=== PATIENT | female | born 1970 | race Caucasian/White ===

== ENCOUNTER 2024-11-03 21:36 | Inpatient (IN) | payer SELFPAY ==
[2024-11-03 21:49] VITALS: BP 136/91; PULSE 70; RESP 20; TEMP 36.8; O2SAT 91; BMI 26.4
--- NOTE | 2024-11-03 21:49 | ECG_ITS ---
APPROVED REPORT Exam: Resting ECG HR:65 bpm ECG Measurements Heart Rate 65 AXES MI 146 P 74 QRSd 94 QRS 81 QT 391 T 66 QTc 403 Conclusion SINUS RHYTHM NORMAL ECG UNCONFIRMED REPORT Electronically signed by : JOLEEN RIVAS, 11/04/2024 06:50:35
--- NOTE | 2024-11-03 21:55 | XR_ITS ---
PROCEDURE INFORMATION: Exam: XR Chest Exam date and time: 11/03/2024 10:00 PM Age: 54 years old Clinical indication: Shortness of breath; Additional info: Chest pain TECHNIQUE: Imaging protocol: Radiologic exam of the chest. Views: 1 view. COMPARISON: No relevant prior studies available. FINDINGS: Lungs: Increased opacity in the medial right lower lung may reflect developing infection. Pleural spaces: No large effusion or pneumothorax. Heart/Mediastinum: No evidence of mediastinal widening or cardiac silhouette enlargement; the mediastinum and heart appear within normal limits for contour and size. Vasculature: There are calcifications of the aortic arch. Bones/joints: No evidence of acute osseous abnormalities within the visualized portions of the thoracic spine and ribs. Osseous structures appear appropriate for patient age. IMPRESSION: Increased opacity in the medial right lower lung may reflect developing infection.
[2024-11-03 22:00] VITALS: BP 114/85; RESP 18
[2024-11-03] MEDS: ASPIRIN 81MG CHEWABLE TABLET 324 MG PO (22:00)
[2024-11-03 22:06] LABS: Coronavirus 19, PCR Not Detected (NotDetected); Influenza A, PCR Not Detected (NotDetected); Influenza B, PCR Not Detected (NotDetected)
[2024-11-03 22:08] LABS: Basophils # 0.1 K/mm3 (0-0.2); Basophils % 0.6 % (0.1-2.0); Eosinophils # 0.2 K/mm3 (0.0-0.4); Eosinophils % 2.4 % (0.1-12.0); Hematocrit 41.4 % (37.0-47.0); Hemoglobin 13.4 g/dL (12.2-16.2); Lymphocytes # 3.1 K/mm3 (0.7-4.5); Lymphocytes % 33.7 % (10-50); Mean Corpuscular HGB Conc 32.4 g/dL (31.8-35.4); Mean Corpuscular Hemoglobin 28.8 pg (27.0-31.2); Mean Corpuscular Volume 88.8 fl (81-99); Mean Platelet Volume 10.9 fl (7.4-10.4); Monocytes % 11.4 % (1.7-9.3); Neutrophils # 4.7 K/mm3 (1.8-7.8); Neutrophils % 51.7 % (37.0-80.0); Platelet Count 220 K/mm3 (142-424); Red Blood Count 4.66 M/mm3 (4.20-5.40); Red Cell Distribution Width 13.2 % (11.5-17.5); White Blood Count 9.1 K/mm3 (4.8-10.8)
[2024-11-03 22:15] LABS: Alanine Aminotransferase 53 U/L (12-78); Albumin Level 4.1 g/dl (3.5-5.0); Albumin/Globulin Ratio 1.4 (1.1-1.8); Alkaline Phosphatase 66 U/L (38-126); Anion Gap 12.9 mEq/L (5-15); Aspartate Amino Transferase 44 U/L (14-36); Bilirubin,Total 0.2 mg/dl (0.2-1.3); Blood Urea Nitrogen 9 mg/dl (7-17); Calcium 8.8 mg/dl (8.4-10.2); Carbon Dioxide 28 mmol/L (22.0-30.0); Chloride 103 mmol/L (98-107); Creatinine Clearance Estimated 102 mL/min (50-200); Estimated Glomerular Filt Rate 104 ml/min (>60); GFR (African American) 126 ML/MIN (>60); Globulin 2.9 g/dL (1.3-3.2); Glucose 87 mg/dl (74-100); Potassium 3.9 mmoL/L (3.5-5.1); Sodium 140 mmol/L (136-145)
--- NOTE | 2024-11-03 22:29 | PC.NURSE ---
Pt resting quietly in bed Awaiting results and disposition
[2024-11-03 22:30] VITALS: BP 129/84; PULSE 71; RESP 25; O2SAT 92
[2024-11-03 22:31] LABS: Troponin I < 0.01 ng/ml (0.00-0.034)
[2024-11-03] MEDS: DOXYCYCLINE HYCL 100 MG TABLET PO (22:51)
[2024-11-03] MEDS: METHYLPREDNISOLONE SOD SUCC 125MG VIAL 125 MG IV (22:51)
[2024-11-03] MEDS: IPRATROPIUM/ALBUTEROL 3 ML NEB 6 ML IH (22:55)
[2024-11-03 23:00] VITALS: BP 121/79
--- NOTE | 2024-11-03 23:23 | ED_ITS ---
Discharge Plan Disposition Patient Disposition: Admitted Condition: Good Clinical Impressions Clinical Impression: Acute exacerbation of chronic obstructive pulmonary disease, Pneumonia, Acute hypoxemic respiratory failure Discharge ED Provider: Marilu Garza General Chief Complaint: Shortness of Breath/Dyspnea Stated Complaint: exp flu-diff breathing, cough Time Seen by Provider: 11/03/24 22:05 Mode of Arrival: Ambulatory Source of Information: Patient Limitations: No Limitations Description of Symptoms (Recalled from ER Triage Doc. by RN): Patient reports cough, shortness of breath and fever x 1 week. Reports increased shortness with exertion. History of Present Illness HPI narrative: This patient is a 54-year-old female with a history of tobacco dependence presenting to the emergency department for evaluation with concern for cough and shortness of breath x 1 week. Patient notes that she was sick last week with a febrile illness, she assumed was either COVID or the flu. She notes that this week, she has had worsening cough and dyspnea on exertion to the point where she feels that she is going to pass out. She notes she has coughing spells where she feels like she is going to pass out as well. No other concerns noted at this time. Related Data Home Medications ?Medication ?Instructions ?Recorded ?Confirmed guaifenesin 600 mg tablet, 1 mg PO BID 11/03/24 11/03/24 extended release 12 hr (Mucinex) Allergies Allergy/AdvReac Type Severity Reaction Status Date / Time From Penicillin G Sodium Allergy Unknown Uncoded 09/15/17 15:03 Nitrofurantoin Allergy Unknown Uncoded 09/15/17 15:03 Penicillin Allergy Unknown Uncoded 09/15/17 15:03 [facility] Disclaimer: The information contained in this section may have been updated after the patient was seen, as this information can be updated by other users. Medical History No significant past medical history No significant past medical history Social History Smoking Status: Current every day smoker alcohol intake: never current occupational status: employed Travel in the last 8 weeks: None ROS Obtained: Yes All systems reviewed & no additional complaints except as documented Physical Exam General General appearance: alert and in no apparent distress Head Head exam: atraumatic and normocephalic Eye Eye exam: Present normal appearance, PERRL and EOMI ENT ENT exam: Present normal exam, normal oropharynx, mucous membranes moist and normal external ear exam Neck Neck exam: Present normal inspection, full ROM and trachea midline; Absent tenderness Chest Chest inspection: Present normal inspection and symmetric chest wall rise; Absent tenderness Respiratory Respiratory exam: Present wheezes, accessory muscle use, prolonged expiratory phase and other (Wheezing and rhonchi, right greater than left); Absent stridor Cardiovascular Cardiovascular exam: Present regular rate and normal rhythm Abdominal Exam Abdominal exam: Present soft; Absent distention, tenderness or guarding Extremities Exam Extremities exam: Present normal inspection, full ROM and normal capillary refill; Absent tenderness or edema Back Exam Back exam: Present normal inspection and full ROM; Absent tenderness Neurological Exam Neurological exam: Present alert, oriented X3, CN II-XII intact and normal gait; Absent motor sensory deficit Psychiatric Psychiatric exam: Present normal affect and normal mood Skin Skin exam: Present warm and dry HEART Score HEART Score HEART Score assessment performed?: Yes History (anamnesis): Slightly suspicious ECG: Normal Age: 45-65 years Risk factors: 1-2 risk factors Troponin: </= normal limit HEART Score: 2 Critical Care Critical Care Time Critical Care Time: No Medical Decision Making Jesús Inquiry Pt receiving controlled substance: No Vital Signs Vital Signs: 11/03/24 21:49 11/03/24 22:00 11/03/24 22:30 Temperature 98.3 F Temperature Source Oral Pulse Rate 71 Pulse Rate [Right Brachial] 70 Respiratory Rate 20 18 25 H Blood Pressure 114/85 129/84 Blood Pressure [Right Arm] 136/91 H Blood Pressure Mean Blood Pressure Mean [Right Arm] 106 Blood Pressure Source Blood Pressure Source [Right Arm] Automatic Cuff Blood Pressure Position Blood Pressure Position [Right Arm] Sitting 02 Sat by Pulse Oximetry 91 L 92 L Oxygen Delivery Method Room Air Room Air Room Air Oxygen Flow Rate (LPM) 11/03/24 23:00 11/03/24 23:30 11/04/24 00:06 Temperature Temperature Source Pulse Rate 72 Pulse Rate [Right Brachial] Respiratory Rate 21 Blood Pressure 121/79 133/82 117/78 Blood Pressure [Right Arm] Blood Pressure Mean 102 99 Blood Pressure Mean [Right Arm] Blood Pressure Source Automatic Cuff Blood Pressure Source [Right Arm] Blood Pressure Position Blood Pressure Position [Right Arm] 02 Sat by Pulse Oximetry 91 L Oxygen Delivery Method Room Air Oxygen Flow Rate (LPM) 11/04/24 00:15 11/04/24 00:30 11/04/24 00:59 Temperature 98.0 F Temperature Source Oral Pulse Rate 79 77 80 Pulse Rate [Right Brachial] Respiratory Rate 21 18 17 Blood Pressure 126/74 126/74 Blood Pressure [Right Arm] Blood Pressure Mean Blood Pressure Mean [Right Arm] Blood Pressure Source Automatic Cuff Automatic Cuff Blood Pressure Source [Right Arm] Blood Pressure Position Sitting Blood Pressure Position [Right Arm] 02 Sat by Pulse Oximetry 90 L 90 L Oxygen Delivery Method Room Air Nasal Cannula Nasal Cannula Oxygen Flow Rate (LPM) 3 3 Lab Data Labs: Lab Results 11/03/24 21:40: SARS-CoV-2 (PCR) Not detected, Influenza A Untype (PCR) Not detected, Influenza Type B (PCR) Not detected 11/03/24 21:55: WBC 9.1, RBC 4.66, Hgb 13.4, Hct 41.4, MCV 88.8, MCH 28.8, MCHC 32.4, RDW 13.2, Plt Count 220, MPV 10.9 H, Neut % (Auto) 51.7, Lymph % (Auto) 33.7, [place] % (Auto) 11.4 H, Eos % (Auto) 2.4, Baso % (Auto) 0.6, Neut # (Auto) 4.7, Lymph # (Auto) 3.1, [place] # (Auto) 1.0, Eos # (Auto) 0.2, Baso # (Auto) 0.1, Sodium 140, Potassium 3.9, Chloride 103, Carbon Dioxide 28, Anion Gap 12.9, BUN 9, Creatinine 0.60, Estimated Creat Clear 102, Estimated GFR 104, Est GFR ( Amer) 126, Glucose 87, Calcium 8.8, Total Bilirubin 0.2, AST 44 H, ALT 53, Alkaline Phosphatase 66, Troponin I < 0.01, Total Protein 7.0, Albumin 4.1, Globulin 2.9, Albumin/Globulin Ratio 1.4 11/03/24 21:55 11/03/24 21:55 Response Orders (Tests/Meds): ED MEDICATIONS Generic Name Dose Route Start Last Admin Trade Name Freq PRN Reason Stop Dose Admin Acetaminophen 650 mg 11/04/24 00:30 Acetaminophen 325mg Tab PO 12/04/24 00:29 Q4HP PRN Fever or Mild Pain (1-3) Enoxaparin Sodium 40 mg 11/04/24 09:00 Enoxaparin 40mg/0.4ml Syringe SUBCUT 12/04/24 08:59 DAILY HUGH Nicotine 21 mg 11/04/24 00:30 Nicotine 21mg/24hr Patch TD 12/04/24 00:29 DAILYP PRN Nicotine Cravings Nitroglycerin 0.4 mg 11/03/24 21:55 Nitroglycerin 0.4mg Sl Tablet SL 11/04/24 21:55 Q5MINP PRN Chest Pain Discontinued Medications Generic Name Dose Route Start Last Admin Trade Name Freq PRN Reason Stop Dose Admin Albuterol/Ipratropium 6 ml 11/03/24 22:38 11/03/24 22:55 Ipratropium/Albuterol 3 Ml Neb IH 11/03/24 22:39 6 ml ONCE ONE Administration Aspirin 324 mg 11/03/24 21:55 11/03/24 22:00 Aspirin 81mg Chewable Tablet PO 11/03/24 21:56 324 mg ONCE ONE Administration Doxycycline Hyclate 100 mg 11/03/24 22:38 11/03/24 22:51 Doxycycline Hycl 100 Mg Tablet PO 11/03/24 22:39 100 mg ONCE ONE Administration Methylprednisolone Sodium Succinate 125 mg 11/03/24 22:38 11/03/24 22:51 Methylprednisolone Sod Succ 125mg Vial IV 11/03/24 22:39 125 mg ONCE ONE Administration ORDERS Category Date Time Status XR chest portable Stat Exams 11/03/24 21:55 Completed Basic Metabolic Panel [facility] Lab 11/04/24 06:00 Ordered Basic Metabolic Panel AML[facility] Lab 11/05/24 06:00 Ordered Basic Metabolic Panel AML[facility] Lab 11/06/24 06:00 Ordered Complete Blood Count Auto Diff AMLAB Lab 11/04/24 06:00 Ordered Complete Blood Count Auto Diff AMLAB Lab 11/05/24 06:00 Ordered Complete Blood Count Auto Diff AMLAB Lab 11/06/24 06:00 Ordered Complete Blood Count Auto Diff Stat Lab 11/03/24 21:55 Completed Comprehensive Metabolic Panel Stat Lab 11/03/24 21:55 Completed Full Resp Panel w/COVID ([facility]) Routine Lab 11/04/24 00:18 Ordered Magnesium AMLAB Lab 11/04/24 06:00 Ordered Rapid PCR Covid and Flu A/B Stat Lab 11/03/24 21:40 Completed Troponin I Q3H Lab 11/04/24 01:00 Ordered Troponin I Q3H Lab 11/04/24 04:00 Ordered Troponin I Stat Lab 11/03/24 21:55 Completed ECG Data Tracing #1: Attestation: I reviewed this ECG and interpreted as documented below: ECG Narrative: Normal sinus rhythm with a ventricular rate of [address] changes concerning for ischemia. Normal axis and intervals. ECG initial impression date: 11/03/24 ECG initial impression time: 21:50 MDM Narrative Medical Decision Narrative: In summary, this patient is a 54-year-old female presenting to the Emergency Department for evaluation of cough and shortness of breath. Differential diagnoses considered include but are not limited to pneumonia, COPD exacerbation, respiratory failure, viral syndrome, dysrhythmia. Ruling out the most morbid conditions drove assessment. It should be noted patient's history includes tobacco dependence which is not at goal therapy. This complicates all aspects of care by increasing patient's risk for morbidity. On exam, the patient has bilateral wheezing and rhonchi, right greater than left. I feel this is likely related to upper respiratory infection/pneumonia/COPD exacerbation based on history and clinical exam, especially in postviral setting. Workup included CBC, CMP, troponin, chest x- ray, EKG. EKG obtained is reassuring. I independently interpreted chest x-ray prior to the radiologist read and noted developing right-sided pneumonia. Please see their read for final interpretation. Labs were obtained that demonstrated reassuring CBC without significant leukocytosis, reassuring chemistry with only mildly elevated AST which is nonspecific. On reassessment, patient had good improvement after administration of DuoNebs x 3, IV methylprednisolone. She was given oral doxycycline with concern for pneumonia. She had hypoxia with O2 saturations ranging from 81 to 88% on room air on multiple subsequent reassessments and states that she feels no better. She states she still feels very short of air. She was placed on 2 L nasal cannula with O2 saturation of 89 to 90%, then titrated up to 3 L nasal cannula. Given this, I feel that she would benefit from admission for acute respiratory failure with hypoxia in the setting of likely COPD and pneumonia. I had an interactive discussion with the hospitalist who admitted the patient in stable condition.
[2024-11-03 23:30] VITALS: BP 133/82
[2024-11-04] VITALS (12 sets, daily range): BP systolic 117–129; BP diastolic 74–80; PULSE 72–102; RESP 17–21; TEMP 36.5–36.7; O2SAT 86–93; BMI 26.0
--- NOTE | 2024-11-04 00:40 | PC.NURSE ---
Report called to [place] [facility]
--- NOTE | 2024-11-04 01:04 | PC.NURSE ---
Patient arrived to floor via wheelchair from ED at 01:03.
[2024-11-04 01:18] LABS: Adenovirus,PCR Not Detected (NotDetected); Bordetella Pertussis Not Detected (NotDetected); Chlamydophila Pneumoniae, PCR Not Detected (NotDetected); Coronavirus 19, PCR Not Detected (NotDetected); Coronavirus 229E Not Detected (NotDetected); Coronavirus NL63 Not Detected (NotDetected); Coronavirus OC43 Not Detected (NotDetected); Coronovirus HKU1,PCR Not Detected (NotDetected); Human Metapneumovirus Not Detected (NotDetected); Influenza A, PCR Not Detected (NotDetected); Influenza AH1, 2009 Not Detected (NotDetected); Influenza AH1, PCR Not Detected (NotDetected); Influenza AH3,PCR Not Detected (NotDetected); Influenza B, PCR Not Detected (NotDetected); Mycoplasma Pneumoniae, PCR Not Detected (NotDetected); Parainfluenza 1, PCR Not Detected (NotDetected); Parainfluenza 2, PCR Not Detected (NotDetected); Parainfluenza 3, PCR Not Detected (NotDetected); Parainfluenza 4, PCR Not Detected (NotDetected); Respiratory Syncytial Virus Not Detected (NotDetected); Rhinovirus/Enterovirus Not Detected (NotDetected)
[2024-11-04] MEDS: ACETAMINOPHEN 325MG TAB 650 MG PO ×2 (01:43→06:28)
[2024-11-04] MEDS: AZITHROMYCIN 250MG TABLET 500 MG PO (01:43)
[2024-11-04] MEDS: CEFTRIAXONE 1 GM 1 GM in 0.9 % SODIUM CHLORIDE 50 ML IV (01:43)
[2024-11-04 01:55] LABS: Troponin I < 0.01 ng/ml (0.00-0.034)
--- NOTE | 2024-11-04 03:59 | P.HP_ITS ---
History of Present Illness *Admission Date: 11/04/24 *Reason for visit:: Shortness of breath *History of present illness: The patient is a 54-year-old female with a history of tobacco dependence who presents to the emergency department with a one?week history of cough and shortness of breath. She reports that she was initially sick last week with a febrile illness?suspecting either COVID-19 or the flu?but her symptoms have worsened over the past week. She now experiences severe cough with episodes in which she feels as if she is going to pass out, and her dyspnea on exertion is so pronounced that even routine activities (e.g., walking around the house) lead to near-syncope. She denies chest pain and other systemic complaints. On exam, bilateral wheezing and rhonchi (more pronounced on the right) are noted. Her SARS-CoV-2 and influenza PCR tests are negative. An initial chest x-ray reveals an increased opacity in the medial right lower lung, suggesting a developing pneumonia. Although she improved somewhat with three rounds of nebulized bronchodilators and IV methylprednisolone, and she was started on oral doxycycline for pneumonia, she continues to be hypoxic with oxygen saturations in the 81?88% range on room air, requiring supplemental oxygen that has been titrated to 3 L/min. This patient?s presentation is most consistent with acute respiratory failure secondary to a COPD exacerbation in the setting of developing right-sided pneumonia. Despite initial medical management including bronchodilators, IV steroids, and doxycycline, her persistent hypoxia indicates ongoing respiratory compromise. Given her significant symptoms and the radiographic findings, admission for further management is warranted. [facility] Disclaimer: The information contained in this section may have been updated after the patient was seen, as this information can be updated by other users. Medical History No significant past medical history No significant past medical history Social History Smoking Status: Current every day smoker alcohol intake: never current occupational status: employed Travel in the last 8 weeks: None Other Medical History Have you received the Flu Vaccine for this season: No Have you received the Pneumonia Vaccine: No Review of Systems Review of Systems Review of systems (narrative): 13 point review of systems negative except as listed in HPI Meds Home Medications and Allergies Home Medications ?Medication ?Instructions ?Recorded ?Confirmed ?Type guaifenesin 600 mg tablet, 1 mg PO BID 11/03/24 11/04/24 History extended release 12 hr (Mucinex) albuterol sulfate 90 mcg/actuation 2 puff inhalation Q6HP PRN 11/04/24 Rx aerosol inhaler (Ventolin HFA) Shortness Of Breath #0 grams doxycycline hyclate 100 mg tablet 100 mg PO Q12H 4 days #8 tabs 11/04/24 Rx fluticasone fur. 100 mcg-umeclid 1 inh inhalation DAILY #0 ea 11/04/24 Rx 62.5 mcg-vilant 25 mcg inhalat.powder (Trelegy Ellipta) prednisone 20 mg tablet 40 mg (2 x 20 mg) PO DAILY 4 days 11/04/24 Rx #8 tabs New Prescriptions to Start Prescriptions: doxycycline hyclate Nichole,Jose M prednisone Nichole,Jose M Allergies Allergy/AdvReac Type Severity Reaction Status Date / Time From Penicillin G Sodium Allergy Unknown Uncoded 09/15/17 15:03 Nitrofurantoin Allergy Unknown Uncoded 09/15/17 15:03 Penicillin Allergy Unknown Uncoded 09/15/17 15:03 Exam Data for Last 24 hours Vital signs and Labs for Last 24 Hours: Temp Pulse Resp BP Pulse Ox O2 Del Method O2 Flow Rate 97.7 F 85 19 126/74 93 L Nasal Cannula 2 11/04/24 01:15 11/04/24 01:15 11/04/24 01:15 11/04/24 01:15 11/04/24 01:15 11/04/24 03:00 11/04/24 03:00 Laboratory Results - last 24 hr 11/03/24 21:40: SARS-CoV-2 (PCR) Not detected, Influenza A Untype (PCR) Not detected, Influenza Type B (PCR) Not detected 11/03/24 21:55: WBC 9.1, RBC 4.66, Hgb 13.4, Hct 41.4, MCV 88.8, MCH 28.8, MCHC 32.4, RDW 13.2, Plt Count 220, MPV 10.9 H, Neut % (Auto) 51.7, Lymph % (Auto) 33.7, [place] % (Auto) 11.4 H, Eos % (Auto) 2.4, Baso % (Auto) 0.6, Neut # (Auto) 4.7, Lymph # (Auto) 3.1, [place] # (Auto) 1.0, Eos # (Auto) 0.2, Baso # (Auto) 0.1, Sodium 140, Potassium 3.9, Chloride 103, Carbon Dioxide 28, Anion Gap 12.9, BUN 9, Creatinine 0.60, Estimated Creat Clear 102, Estimated GFR 104, Est GFR ( Amer) 126, Glucose 87, Calcium 8.8, Total Bilirubin 0.2, AST 44 H, ALT 53, Alkaline Phosphatase 66, Troponin I < 0.01, Total Protein 7.0, Albumin 4.1, Globulin 2.9, Albumin/Globulin Ratio 1.4 11/04/24 01:12: Troponin I < 0.01 I & O for Last 24 hours: Intake & Output 11/01/24 11/02/24 11/03/24 11/04/24 23:59 23:59 23:59 23:59 Output Total 0 / 0 Balance 0 / 0 Weight 61.235 kg 60.146 kg Constitutional Constitutional: no acute distress *Routine HEENT Exam Head: Present normocephalic Eye: Present EOMI and PERRL ENT: Present mucous membranes moist *Routine Neck Exam Neck: Present supple; Absent lymphadenopathy *Routine Respiratory Exam Respiratory: Present CTA bilaterally *Routine Cardiovascular Exam Cardiovascular: Present RRR *Routine Abdominal Exam Abdominal: Present soft and normoactive bowel sounds; Absent tenderness *Routine Rectal Exam Rectal:: deferred *Routine Genitalia Exam Genitalia:: deferred *Routine Extremities Exam Extremities: Absent cyanosis, clubbing or edema *Routine Skin Exam Skin: Present warm; Absent rash *Routine Neurological Exam Neurological: Present alert and oriented X3 Assessment and Plan *Assessment and plan (1) Acute hypoxemic respiratory failure: Status: Acute Category: Medical Code(s): J96.01 - Acute respiratory failure with hypoxia (2) Pneumonia: Status: Acute Category: Medical Code(s): J18.9 - Pneumonia, unspecified organism (3) Acute exacerbation of chronic obstructive pulmonary disease: Status: Acute Category: Medical Code(s): J44.1 - Chronic obstructive pulmonary disease with (acute) exacerbation Plan Medical Decision Making Summary: This patient?s presentation is most consistent with acute respiratory failure secondary to a COPD exacerbation in the setting of developing right-sided pneumonia. Despite initial medical management including bronchodilators, IV steroids, and doxycycline, her persistent hypoxia indicates ongoing respiratory compromise. Given her significant symptoms and the radiographic findings, admission for further management is warranted. Acute Respiratory Failure with Hypoxia in the Setting of COPD Exacerbation and Pneumonia * Continue supplemental oxygen, titrating up to 3 L/min via nasal cannula to maintain saturations >92%. * Continue IV methylprednisolone 40 mg twice daily * Provide additional nebulized bronchodilator treatments every 6 hours * Monitor respiratory status continuously with pulse oximetry and frequent reassessments. * Robitussin with guaifenesin every 6 as needed for cough Developing Right-Sided Pneumonia * Transition to IV ceftriaxone and p.o. azithromycin for treatment of community- acquired pneumonia * Order a full respiratory panel to rule out atypical pathogens. * Plan to repeat a chest x-ray in 24 hours if clinical improvement is not observed. * Incentive spirometry Tobacco Dependence * Rest Room Maid the patient regarding smoking cessation; provide educational materials and consider referral to a tobacco cessation program. * Document that her tobacco dependence is not at goal therapy and address this as a long-term risk factor. * Nicotine patch offered Disposition * Admit the patient for inpatient management of acute respiratory failure, COPD exacerbation, and pneumonia. * DVT prophylaxis with subcu Lovenox * GI prophylaxis with p.o. Protonix * Patient is full code * Regular diet Rounded on patient after nurse practitioner. Personally examined and interviewed patient. Agree with exam findings and care plan as documented.
--- NOTE | 2024-11-04 04:03 | PC.NURSE ---
Addendum entered by Karly Vazquez RN 11/04/24 04:55: Respiratory panel came back negative. Original Note: Ms Khalida Parkinson was newly admitted this shift on behalf of respiratory failure and COPD exacerbation. She explained that she has been having shortness of breath for about 1 week, a nonproductive cough, as well as some diarrhea. A PCR respiratory panel was taken this shift, results pending. Patient has been weaned from 3 L (started in ER) to 2 L of oxygen flow via nasal cannula this shift; room air is her baseline, for she does not wear oxygen at home. Oxygen saturations have remained > 90%. Other vital signs stable. She stated that her shortness of breath has greatly improved since oxygen application. During auscultation, diminished lung sounds were heard. Heart and bowel sounds were within normal findings. Patient ambulates independently with supervision as needed. She was given saltine crackers and Alejandra kayla upon arrival to the floor. PO/IV antibiotics were given per NOV, as well as Tylenol for headaches. At this time, the patient is resting in bed. No acute changes noted thus far. Call light within reach.
[2024-11-04 04:30] LABS: Basophils % 0.2 % (0.1-2.0); Chloride 107 mmol/L (98-107); Hemoglobin 13.1 g/dL (12.2-16.2); Lymphocytes # 0.9 K/mm3 (0.7-4.5); Lymphocytes % 10.6 % (10-50); Mean Corpuscular HGB Conc 32.8 g/dL (31.8-35.4); Mean Corpuscular Hemoglobin 29.2 pg (27.0-31.2); Mean Corpuscular Volume 89.1 fl (81-99); Monocytes # 0.1 K/mm3 (0.1-1.0); Monocytes % 1.6 % (1.7-9.3); Neutrophils # 7.2 K/mm3 (1.8-7.8); Platelet Count 206 K/mm3 (142-424); Potassium 3.7 mmoL/L (3.5-5.1); Red Blood Count 4.49 M/mm3 (4.20-5.40); Red Cell Distribution Width 13.2 % (11.5-17.5); Sodium 141 mmol/L (136-145); White Blood Count 8.2 K/mm3 (4.8-10.8)
[2024-11-04 04:33] LABS: Anion Gap 10.7 mEq/L (5-15); Blood Urea Nitrogen 9 mg/dl (7-17); Carbon Dioxide 27 mmol/L (22.0-30.0); Creatinine Clearance Estimated 121 mL/min (50-200); Estimated Glomerular Filt Rate 128 ml/min (>60); GFR (African American) 155 ML/MIN (>60)
[2024-11-04 04:34] LABS: Calcium 8.7 mg/dl (8.4-10.2); Glucose 186 mg/dl (74-100); Magnesium 1.8 mg/dl (1.6-2.3)
[2024-11-04 04:50] LABS: Troponin I < 0.01 ng/ml (0.00-0.034)
[2024-11-04] MEDS: IPRATROPIUM/ALBUTEROL 3 ML NEB IH ×2 (06:40→13:15)
--- NOTE | 2024-11-04 06:56 | PC.NURSE ---
Addendum entered by Karly Vazquez RN 11/04/24 07:00: I humidified the patient's nasal cannula line due to complaints of headaches and dry nasal passages. Original Note: Respiratory therapist placed the patient onto 3 L of oxygen via nasal cannula at this time, due to dropping oxygen saturations into the 80s after completing a breathing treatment.
--- NOTE | 2024-11-04 11:52 | EXP.DC.SUM ---
General Admission date:: 11/04/24 Discharge date: 11/04/24 HPI HPI HPI: The patient is a 54-year-old female with a history of tobacco dependence who presents to the emergency department with a one?week history of cough and shortness of breath. She reports that she was initially sick last week with a febrile illness?suspecting either COVID-19 or the flu?but her symptoms have worsened over the past week. She now experiences severe cough with episodes in which she feels as if she is going to pass out, and her dyspnea on exertion is so pronounced that even routine activities (e.g., walking around the house) lead to near-syncope. She denies chest pain and other systemic complaints. On exam, bilateral wheezing and rhonchi (more pronounced on the right) are noted. Her SARS-CoV-2 and influenza PCR tests are negative. An initial chest x-ray reveals an increased opacity in the medial right lower lung, suggesting a developing pneumonia. Although she improved somewhat with three rounds of nebulized bronchodilators and IV methylprednisolone, and she was started on oral doxycycline for pneumonia, she continues to be hypoxic with oxygen saturations in the 81?88% range on room air, requiring supplemental oxygen that has been titrated to 3 L/min. This patient?s presentation is most consistent with acute respiratory failure secondary to a COPD exacerbation in the setting of developing right-sided pneumonia. Despite initial medical management including bronchodilators, IV steroids, and doxycycline, her persistent hypoxia indicates ongoing respiratory compromise. Given her significant symptoms and the radiographic findings, admission for further management is warranted. Hospital Course Hospital Course Hospital Course: This patient?s presentation is most consistent with acute respiratory failure secondary to a COPD exacerbation in the setting of developing right-sided pneumonia. Despite initial medical management including bronchodilators, IV steroids, and doxycycline, her persistent hypoxia indicates ongoing respiratory compromise. Given her significant symptoms and the radiographic findings, admission for further management is warranted. Did well overnight. Patient responding to antibiotics and steroids. Suspect COPD exacerbation given that she has not had formal pulmonary function test to prove COPD. Patient does state that in a prejob eval at [facility] as she had abnormal findings. Tolerating p.o. antibiotics. At this time she stable to discharge home. Further management at follow-up. Referred to PCP for further care. Acute Respiratory Failure with Hypoxia in the Setting of COPD Exacerbation and Pneumonia -Chest imaging with no focal consolidation concerning for pneumonia but findings most consistent with COPD exacerbation. Still wheezy. Started on Trelegy 100 inhaler and albuterol inhaler with spacer. Tolerating well. During admission, continue to require supplemental oxygen. Patient's saturation at rest on room air was 86% on morning of discharge. Strongly encouraged her to wear her oxygen. Would necessitate 2 L via nasal cannula continuously. Oxygen was ordered. Patient was discharged. Prior to leaving however she changed her mind about wanting oxygen. As sats were in the mid to high 80s, decision made to agree to disagree with patient. Discharged home. Order with [employer] company unavailable if she changes her mind after leaving facility. Patient initially treated with azithromycin and ceftriaxone. Transition to Doxy to complete 5 days total of antibiotic therapy for COPD exacerbation/pneumonia and prednisone 40 mg daily to complete 5 days of therapy. Tolerating p.o. intake. Afebrile. White count normal on morning of discharge. Extensive discussion about her tobacco use. Counseled strongly on cessation. Patient would benefit from establishing with a PCP and following with pulmonology for further testing and workup. Will defer to outpatient setting. Exam Data for Last 24 hours Vital signs and Labs for Last 24 Hours: Temp Pulse Resp BP Pulse Ox O2 Del Method O2 Flow Rate 98 F 102 H 17 129/80 86 L Nasal Cannula 2 11/04/24 08:00 11/04/24 08:00 11/04/24 08:00 11/04/24 08:00 11/04/24 10:00 11/04/24 10:56 11/04/24 10:56 Laboratory Results - last 24 hr 11/03/24 21:40: SARS-CoV-2 (PCR) Not detected, Influenza A Untype (PCR) Not detected, Influenza Type B (PCR) Not detected 11/03/24 21:55: WBC 9.1, RBC 4.66, Hgb 13.4, Hct 41.4, MCV 88.8, MCH 28.8, MCHC 32.4, RDW 13.2, Plt Count 220, MPV 10.9 H, Neut % (Auto) 51.7, Lymph % (Auto) 33.7, [place] % (Auto) 11.4 H, Eos % (Auto) 2.4, Baso % (Auto) 0.6, Neut # (Auto) 4.7, Lymph # (Auto) 3.1, [place] # (Auto) 1.0, Eos # (Auto) 0.2, Baso # (Auto) 0.1, Sodium 140, Potassium 3.9, Chloride 103, Carbon Dioxide 28, Anion Gap 12.9, BUN 9, Creatinine 0.60, Estimated Creat Clear 102, Estimated GFR 104, Est GFR ( Amer) 126, Glucose 87, Calcium 8.8, Total Bilirubin 0.2, AST 44 H, ALT 53, Alkaline Phosphatase 66, Troponin I < 0.01, Total Protein 7.0, Albumin 4.1, Globulin 2.9, Albumin/Globulin Ratio 1.4 11/04/24 00:56: Chlamy pneumoniae PCR Not detected, Adenovirus (PCR) Not detected, B. pertussis DNA (PCR) Not detected, Coronavirus OC43 (PCR) Not detected, Coronavirus HKU1 (PCR) Not detected, Coronavirus 229E (PCR) Not detected, SARS-CoV-2 (PCR) Not detected, Coronavirus NL63 (PCR) Not detected, Human Metapneumovir PCR Not detected, Influenza A (H1) PCR Not detected, Influ A (H1N1/09) PCR Not detected, Influenza A (H3) PCR Not detected, Influenza Type A (PCR) Not detected, Influenza Type B (PCR) Not detected, M. pneumoniae (PCR) Not detected, Parainfluenza 1 (PCR) Not detected, Parainfluenza 2 (PCR) Not detected, Parainfluenza 3 (PCR) Not detected, Parainfluenza 4 (PCR) Not detected, RSV (PCR) Not detected, Entero/Rhino (PCR) Not detected 11/04/24 01:12: Troponin I < 0.01 11/04/24 04:07: WBC 8.2, RBC 4.49, Hgb 13.1, Hct 40.0, MCV 89.1, MCH 29.2, MCHC 32.8, RDW 13.2, Plt Count 206, MPV 11.0 H, Neut % (Auto) 87.0 H, Lymph % (Auto) 10.6, [place] % (Auto) 1.6 L, Eos % (Auto) 0.0 L, Baso % (Auto) 0.2, Neut # (Auto) 7.2, Lymph # (Auto) 0.9, [place] # (Auto) 0.1, Eos # (Auto) 0.0, Baso # (Auto) 0.0, Sodium 141, Potassium 3.7, Chloride 107, Carbon Dioxide 27, Anion Gap 10.7, BUN 9, Creatinine 0.50 L, Estimated Creat Clear 121, Estimated GFR 128, Est GFR ( Amer) 155 D, Glucose 186 H D, Calcium 8.7, Magnesium 1.8, Troponin I < 0.01 I & O for Last 24 hours: Intake & Output 11/01/24 11/02/24 11/03/24 11/04/24 23:59 23:59 23:59 23:59 Intake Total 460 / 460 Output Total 0 / 0 Balance 460 / 460 Weight 61.235 kg 60.146 kg Constitutional Constitutional: no acute distress, average body habitus, chronically ill appearing and cooperative *Routine HEENT Exam Head: Present normocephalic Eye: Present EOMI and PERRL ENT: Present mucous membranes moist *Routine Neck Exam Neck: Present supple; Absent lymphadenopathy *Routine Respiratory Exam Respiratory: Present wheezes; Absent prolonged expiratory phase, rhonchi or crackles *Routine Cardiovascular Exam Cardiovascular: Present RRR *Routine Abdominal Exam Abdominal: Present soft and normoactive bowel sounds; Absent tenderness *Routine Rectal Exam Patient deferred: visual exam *Routine Exam Patient deferred: external exam *Routine Extremities Exam Extremities: Absent cyanosis, clubbing or edema *Routine Skin Exam Skin: Present intact and warm; Absent rash *Routine Neurological Exam Neurological: Present alert, oriented X3 and moving all extremities; Absent altered mental status Results Data Completed and Pending Labs on day of discharge: Labs from last 24 hours 11/04/24 11/04/24 11/04/24 04:07 01:12 00:56 WBC 8.2 RBC 4.49 Hgb 13.1 Hct 40.0 MCV 89.1 MCH 29.2 MCHC 32.8 RDW 13.2 Plt Count 206 MPV 11.0 H Neut % (Auto) 87.0 H Lymph % (Auto) 10.6 [place] % (Auto) 1.6 L Eos % (Auto) 0.0 L Baso % (Auto) 0.2 Neut # (Auto) 7.2 Lymph # (Auto) 0.9 [place] # (Auto) 0.1 Eos # (Auto) 0.0 Baso # (Auto) 0.0 Sodium 141 Potassium 3.7 Chloride 107 Carbon Dioxide 27 Anion Gap 10.7 BUN 9 Creatinine 0.50 L Estimated Creat Clear 121 Estimated GFR 128 Est GFR ( Amer) 155 D Glucose 186 H D Calcium 8.7 Magnesium 1.8 Total Bilirubin AST ALT Alkaline Phosphatase Troponin I < 0.01 < 0.01 Total Protein Albumin Globulin Albumin/Globulin Ratio Chlamy pneumoniae PCR Not detected Adenovirus (PCR) Not detected B. pertussis DNA (PCR) Not detected Coronavirus OC43 (PCR) Not detected Coronavirus HKU1 (PCR) Not detected Coronavirus 229E (PCR) Not detected SARS-CoV-2 (PCR) Not detected Coronavirus NL63 (PCR) Not detected Human Metapneumovir PCR Not detected Influenza A (H1) PCR Not detected Influ A (H1N1/09) PCR Not detected Influenza A (H3) PCR Not detected Influenza Type A (PCR) Not detected Influenza A Untype (PCR) Influenza Type B (PCR) Not detected M. pneumoniae (PCR) Not detected Parainfluenza 1 (PCR) Not detected Parainfluenza 2 (PCR) Not detected Parainfluenza 3 (PCR) Not detected Parainfluenza 4 (PCR) Not detected RSV (PCR) Not detected Entero/Rhino (PCR) Not detected 11/03/24 11/03/24 21:55 21:40 WBC 9.1 RBC 4.66 Hgb 13.4 Hct 41.4 MCV 88.8 MCH 28.8 MCHC 32.4 RDW 13.2 Plt Count 220 MPV 10.9 H Neut % (Auto) 51.7 Lymph % (Auto) 33.7 [place] % (Auto) 11.4 H Eos % (Auto) 2.4 Baso % (Auto) 0.6 Neut # (Auto) 4.7 Lymph # (Auto) 3.1 [place] # (Auto) 1.0 Eos # (Auto) 0.2 Baso # (Auto) 0.1 Sodium 140 Potassium 3.9 Chloride 103 Carbon Dioxide 28 Anion Gap 12.9 BUN 9 Creatinine 0.60 Estimated Creat Clear 102 Estimated GFR 104 Est GFR ( Amer) 126 Glucose 87 Calcium 8.8 Magnesium Total Bilirubin 0.2 AST 44 H ALT 53 Alkaline Phosphatase 66 Troponin I < 0.01 Total Protein 7.0 Albumin 4.1 Globulin 2.9 Albumin/Globulin Ratio 1.4 Chlamy pneumoniae PCR Adenovirus (PCR) B. pertussis DNA (PCR) Coronavirus OC43 (PCR) Coronavirus HKU1 (PCR) Coronavirus 229E (PCR) SARS-CoV-2 (PCR) Not detected Coronavirus NL63 (PCR) Human Metapneumovir PCR Influenza A (H1) PCR Influ A (H1N1/09) PCR Influenza A (H3) PCR Influenza Type A (PCR) Influenza A Untype (PCR) Not detected Influenza Type B (PCR) Not detected M. pneumoniae (PCR) Parainfluenza 1 (PCR) Parainfluenza 2 (PCR) Parainfluenza 3 (PCR) Parainfluenza 4 (PCR) RSV (PCR) Entero/Rhino (PCR) DS: Diagnosis Discharge Diagnosis (1) Acute hypoxemic respiratory failure: Status: Acute Code(s): J96.01 - Acute respiratory failure with hypoxia (2) Pneumonia: Status: Acute Code(s): J18.9 - Pneumonia, unspecified organism (3) Acute exacerbation of chronic obstructive pulmonary disease: Status: Acute Code(s): J44.1 - Chronic obstructive pulmonary disease with (acute) exacerbation Meds Home Medications and Allergies Home Medications ?Medication ?Instructions ?Recorded ?Confirmed ?Type guaifenesin 600 mg tablet, 1 mg PO BID 11/03/24 11/04/24 History extended release 12 hr (Mucinex) albuterol sulfate 90 mcg/actuation 2 puff inhalation Q6HP PRN 11/04/24 Rx aerosol inhaler (Ventolin HFA) Shortness Of Breath #0 grams doxycycline hyclate 100 mg tablet 100 mg PO Q12H 4 days #8 tabs 11/04/24 Rx fluticasone fur. 100 mcg-umeclid 1 inh inhalation DAILY #0 ea 11/04/24 Rx 62.5 mcg-vilant 25 mcg inhalat.powder (Trelegy Ellipta) prednisone 20 mg tablet 40 mg (2 x 20 mg) PO DAILY 4 days 11/04/24 Rx #8 tabs New Prescriptions to Start Prescriptions: doxycycline hyclate Jose M Varela prednisone Jose M Varela Allergies Allergy/AdvReac Type Severity Reaction Status Date / Time From Penicillin G Sodium Allergy Unknown Uncoded 09/15/17 15:03 Nitrofurantoin Allergy Unknown Uncoded 09/15/17 15:03 Penicillin Allergy Unknown Uncoded 09/15/17 15:03 Discharge Plan Disposition Patient Disposition: Home, Self-Care Condition: Good Discharge Order Discharge Orders: Discharge Order (Routine); Ordered 11/04/24 Ordered By: Jose M Varela Follow up Plan Follow up with: [place] APRN [Nurse Practitioner] - 11/10/24 10:00 am Prescriptions/Medication Reconciliation: New albuterol sulfate [Ventolin HFA] 90 mcg/actuation Hfa Aerosol Inhaler 2 puff inhalation Q6HP PRN (Reason: Shortness Of Breath) Qty: 0 0RF Trelegy Ellipta 100-62.5-25 mcg Blister With Device 1 inh inhalation DAILY Qty: 0 0RF prednisone 20 mg Tablet 40 mg PO DAILY 4 Days Qty: 8 0RF doxycycline hyclate 100 mg Tablet 100 mg PO Q12H 4 Days Qty: 8 0RF Continued guaifenesin [Mucinex] 600 mg Tablet Extended Release 12hr 1 mg PO BID Other Ambulatory Orders: Home Medical Equipment (Routine) Location: None Selected Ordered By: Jose M Varela Problem Reconciliation Problems Reviewed?: Yes Patient Discharge Instructions ACTIVITY: Continue current activity DIET: continue same diet Patient Instructions: DI for Pneumonia -- Adult, DI for Shortness of Breath Print Language: Indonesian Providers Primary Care Provider: Provider,Referral Admit Provider: Jose M Varela Attending Provider: Jose M Varela
[2024-11-04] MEDS: DOXYCYCLINE HYCL 100 MG TABLET PO (12:21)
[2024-11-04] MEDS: predniSONE 20MG TAB 40 MG PO (12:21)
[2024-11-04] MEDS: IBUPROFEN 600 MG TABLET PO (12:21)
[2024-11-04] MEDS: FLUTICASONE/UMECLIDIN/VILANTER 100/62.5/25MCG INHALER 1 PUFF IH (13:15)
[2024-11-04] MEDS: SODIUM CHLORIDE 3% 15ML NEB 3 ML IH (13:20)
--- NOTE | 2024-11-04 14:12 | PC.NURSE ---
Pt is currently on 1L NC, she is being discharged. MD has orders in for pt to go home with oxygen however pt is refusing oxygen. Pt educated on importance of wearing oxygen for low O2 levels.
--- NOTE | 2024-11-04 15:05 | CARE MANAGER ---
Spoke with patient regarding need for home O2. Patient educated on need for supplemental O2 and she verbalized that she feels like she is going to be ok without it. I faxed clinical/order to [facility], in case patient gets home and changes her mind.
== END 2024-11-04 15:00 | disposition home or self-care (01) | DRG 189 ==
LOC: ER 11-04 00:18 → 2ND 11-04 00:57
PROVIDERS: Nurse Practitioner Family; Admitting Provider Internal Medicine Adolescent Medicine; Emergency Provider Emergency Medicine; Visit Provider Internal Medicine Adolescent Medicine
DX: J96.01 Acute respiratory failure with hypoxia (principal); J18.9 Pneumonia, unspecified organism; J44.1 Chronic obstructive pulmonary disease with (acute) exacerbation; F17.210 Nicotine dependence, cigarettes, uncomplicated; Z79.51 Long term (current) use of inhaled steroids; Z79.899 Other long term (current) drug therapy
CPT/HCPCS: 36415; 71045; 80048; 80053; 83735; 84484; 85025; 87633; 87636; 93005; 94640; 99285; J0696; J1650; J2919; J7620

== ENCOUNTER 2025-03-17 10:17 | Outpatient (CLI) | payer SELFPAY ==
[2025-03-20 15:16] LABS: Lyme Ab CIA Positive (Negative); Lyme Ab IgM CIA Positive (Negative); Lyme IgG CIA Positive (Negative)
== END 2025-03-17 23:59 | disposition home or self-care (01) ==
LOC: LAB.DROPOF 03-20 10:18
PROVIDERS: PCP Family Medicine; Visit Provider Family Medicine
DX: S30.861A Insect bite (nonvenomous) of abdominal wall, initial encounter (principal); W57.XXXA Bitten or stung by nonvenomous insect and other nonvenomous arthropods, initial encounter
CPT/HCPCS: 86618